=== PATIENT | male | born 1950 | race Caucasian/White ===

== ENCOUNTER → 2016-10-31 | Outpatient (CLI) | payer MEDICARE, BC ==
[~2016-10-31] MED LIST: ASPIRIN 81M81 MG/TA2 PO; BENAZEPRIL; BUFFERED ASPIRIN; FISH OIL1 IU PO; FLEXERIL 1010 MG/TAB PO; GLUCOSAMINE SU500 M2 PO; HCTZ; HCTZ12.5TAB PO; HYTRIN 2MG CAPSU2 MG PO; LOTENSIN40 MG PO; LOTREL 10 MG-201 CAP PO; MULTIPLE VITAMI1 TA1 PO; MVI; NEURONTIN300 MG/CAP PO; NORCO 325 MG-51 TAB PO; NORVASC 10MG10 MG PO; OMEGA 31000 MG; PRADAXA 150MG150 MG PO; RYTHMOL; RYTHMOL300 MG PO
== END ==
LOC: COL.VAS 08:21
DX: I82.531 Chronic embolism and thrombosis of right popliteal vein (principal); M79.661 Pain in right lower leg; D68.2 Hereditary deficiency of other clotting factors; R60.0 Localized edema

== ENCOUNTER 2018-01-20 09:01 | Emergency (ER) | payer MEDICARE, BC ==
[~2018-01-20] VITALS: Ht 193 cm; Wt 124.4 kg
[2018-01-20 09:24] VITALS: BP 129/73
[2018-01-20] MEDS ORDERED: PERCOCET 325 MG1 TA3 PO (13:16)
[2018-01-20 13:46] VITALS: PULSE 112; TEMP 98.3
== END 2018-01-20 13:43 | disposition home or self-care (01) ==
LOC: COL.ER 09:01
DX: M54.12 Radiculopathy, cervical region (principal); I48.91 Unspecified atrial fibrillation; I12.9 Hypertensive chronic kidney disease with stage 1 through stage 4 chronic kidney disease, or unspecified chronic kidney disease; N18.9 Chronic kidney disease, unspecified; I82.409 Acute embolism and thrombosis of unspecified deep veins of unspecified lower extremity; Z87.891 Personal history of nicotine dependence; Z79.82 Long term (current) use of aspirin
CPT/HCPCS: J2270; J2550

== ENCOUNTER → 2018-04-16 | Outpatient (CLI) | payer MEDICARE, BC ==
[~2018-04-16] MED LIST changes: +PERCOCET 325 MG1 TA3 PO
== END ==
LOC: COL.RAD 09:15
DX: N40.0 Benign prostatic hyperplasia without lower urinary tract symptoms (principal); N28.1 Cyst of kidney, acquired

== ENCOUNTER → 2019-08-28 | Outpatient (CLI) | payer MEDICARE, BC | LOC: COL.VAS 08:00 | DX: N18.4 Chronic kidney disease, stage 4 (severe) (principal) | CPT/HCPCS: G0365 ==

== ENCOUNTER 2020-07-30 11:12 | Emergency (ER) | payer MEDICARE, BC ==
[~2020-07-30] VITALS: Ht 193 cm; Wt 102.7 kg
[2020-07-30 11:15] VITALS: TEMP 97.8
[2020-07-30] MEDS ORDERED: ELIQUIS 5MG PO ×2 (11:38→11:45)
[2020-07-30] MEDS ORDERED: LASIX 20MG TABL20 MG PO (11:40)
[2020-07-30] MEDS ORDERED: HYTRIN 5MG C5 MG/CAP PO (11:43)
[2020-07-30 11:50] LABS: BASO % 0.7 % (0.0-2.0); EOS # 0.1 (0.0-0.7); EOS % 3.2 % (0-4.0); GRAN # 2.9 (1.4-6.5); GRAN % 65.9 % (42.2-75.2); LYMPH % 22.4 % (20.0-51.0); MEAN CELL VOLUME 91 fl (80.0-100.0); MEAN CORPUSCULAR HGB CONC 33 g/dl (33.0-37.0); MEAN PLATELET VOLUME 10.7 fl (7.4-10.4); MONO # 0.3 (0.1-0.6); MONO % 7.3 % (1.7-9.3); PLATELET COUNT 169 K/mm3 (130-400); RED BLOOD COUNT 3.06 M/mm3 (4.20-5.60); REDCELL DISTRIBUTION WIDTH-CV 13.2 % (11.5-14.5)
[2020-07-30 11:51] LABS: HEMATOCRIT 27.8 % (42.0-52.0); HEMOGLOBIN 9.1 g/dl (13.5-18.0); MEAN CORPUSCULAR HEMOGLOBIN 30 pg (27.0-31.0)
[2020-07-30 11:56] LABS: INR 1.3 (0.8-3.0); PROTHROMBIN TIME 14.7 SECONDS (9.7-12.8)
[2020-07-30 11:59] LABS: PARTIAL THROMBOPLASTIN TIME 32.1 SECONDS (26.0-37.0)
[2020-07-30 12:03] LABS: ALBUMIN 4.3 gm/dL (3.5-5.0); BILIRUBIN,TOTAL 0.4 mg/dL (0.0-1.0); CALCIUM 9.1 mg/dL (8.4-10.2); CREATININE, serum 6.22 (0.66-1.25); POTASSIUM 4.7 mmol/L (3.4-5.0); TOTAL PROTEIN 7.1 gm/dL (6.4-8.2)
[2020-07-30 12:14] LABS: TROPONIN-I 0.014 ng/mL (0.000-0.035)
[2020-07-30 13:45] VITALS: BP 159/91; PULSE 75
== END 2020-07-30 14:00 | disposition home or self-care (01) ==
LOC: COL.ER 11:12
PROVIDERS: Family Medicine
DX: R07.9 Chest pain, unspecified (principal); I12.0 Hypertensive chronic kidney disease with stage 5 chronic kidney disease or end stage renal disease; N18.6 End stage renal disease; Z79.82 Long term (current) use of aspirin; Z79.01 Long term (current) use of anticoagulants

== ENCOUNTER 2021-08-02 10:06 | Inpatient (IN) | payer MEDICARE, BC ==
[~2021-08-02] VITALS: Ht 193 cm; Wt 97.3 kg
[~2021-08-02 10:06] MED LIST changes: +ELIQUIS 5MG PO; +HYTRIN 5MG C5 MG/CAP PO; +LASIX 20MG TABL20 MG PO
[2021-08-02 10:40] VITALS: BP 139/65; PULSE 59; TEMP 97.6
[2021-08-02 12:08] LABS: ALBUMIN 3.3 gm/dL (3.4-4.8); CALCIUM 9.4 mg/dL (8.4-10.2); CREATININE, serum 10.59 mg/dL (0.72-1.25); PHOSPHOROUS 4.9 mg/dL (2.3-4.7); POTASSIUM 4.7 mmol/L (3.5-4.5)
[2021-08-02 12:11] LABS: ALBUMIN 3.3 gm/dL (3.4-4.8); BASO % 0.4 % (0.0-2.0); BILIRUBIN,TOTAL 0.4 mg/dL (0.2-1.2); CALCIUM 9.4 mg/dL (8.4-10.2); CREATININE, serum 10.47 mg/dL (0.72-1.25); EOS # 0.1 K/mm3 (0.0-0.7); EOS % 2.4 % (0-4.0); GRAN % 64.6 % (42.2-75.2); LYMPH # 0.9 K/mm3 (1.2-3.4); LYMPH % 20.6 % (20.0-51.0); MEAN CELL VOLUME 90 fl (80.0-100.0); MEAN CORPUSCULAR HGB CONC 33 g/dl (33.0-37.0); MEAN PLATELET VOLUME 10.8 fl (7.4-10.4); MONO # 0.5 K/mm3 (0.1-0.6); MONO % 11.8 % (1.7-9.3); PLATELET COUNT 160 K/mm3 (130-400); POTASSIUM 4.6 mmol/L (3.5-4.5); RED BLOOD COUNT 3.24 M/mm3 (4.20-5.60); REDCELL DISTRIBUTION WIDTH-CV 15.3 % (11.5-14.5); TOTAL PROTEIN 6.1 gm/dL (6.2-8.1)
[2021-08-02 12:13] LABS: HEMOGLOBIN 9.5 g/dl (13.5-18.0); MEAN CORPUSCULAR HEMOGLOBIN 29 pg (27.0-31.0)
[2021-08-02] MEDS ORDERED: CALCITRIOL PO (12:23)
[2021-08-02] MEDS ORDERED: PHOS LO (12:24)
[2021-08-02] MEDS ORDERED: CHONDROITIN PO (12:25)
[2021-08-02] MEDS ORDERED: GLU PO (12:25)
[2021-08-02] MEDS ORDERED: B-121000 MCG PO (12:26)
[2021-08-02] MEDS ORDERED: ARANESP0.06 MG/ML SQ (12:27)
[2021-08-02] MEDS ORDERED: DULCOLAX STOOL100 MG PO (12:30)
[2021-08-02] MEDS ORDERED: APRESOLINE 25MG25 MG PO (12:32)
[2021-08-02] MEDS ORDERED: KRILL OIL 1,001 EAC1 PO (12:32)
[2021-08-02] MEDS ORDERED: RYTHMOL225 MG PO (12:33)
[2021-08-02] MEDS ORDERED: SODIUM BICARBO650 MG PO (12:33)
[2021-08-02] MEDS ORDERED: NATURE'S BLEND100 M2 PO (12:34)
[2021-08-02] MEDS ORDERED: VITAMIN B COMPL1 SGL PO (12:56)
[2021-08-02 16:35] VITALS: BP 147/82; PULSE 60; TEMP 98.4
--- NOTE | 2021-08-02 17:14 | NUR ---
Pt. admitted to room 359 today around 10:40. Pt went to go to dialysis this am, however pt. 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 Medication list updated in [facility] and J[facility] Jose made aware. Pt.'s supportive at bedside. Pt. OOB ambulating w/ standby assist for safety. Pt. had PO intake of Nepro drink. Pt. also had grapes. Pt. denies pain. Site to left arm swollen, ice pack has been applied off and on throughout the shift. Pt. makes needs known. Melisa has been on hold, plan for dialysis cath placement tomorrow around 1152-0154. Lovenox administered per Dr. Denton order. The pt. has been updated on plan of care and agreeable. Call light and belongings in reach.
[2021-08-02 20:00] VITALS: BP 164/78; PULSE 55; TEMP 98.1
--- NOTE | 2021-08-02 20:30 | NUR ---
Patient refused to get an IV indicating he does not need it and will go out tomorrow from the hospital.
[2021-08-02 23:14] LABS: HEPATITIS B SURFACE ANTIBODY 22.9 (()); HEPATITIS B SURFACE ANTIGEN Negative (Negative); HEPATITIS C VIRUS ANTIBODY Negative (Negative)
[2021-08-03] VITALS (8 sets, daily range): BP systolic 120–157; BP diastolic 69–88; PULSE 55–73; TEMP 97.5–98.8
--- NOTE | 2021-08-03 06:51 | NUR ---
Patient has been stable along the night. He has been NPO after midnight for procedure. No further needs at this time. Shift report will be given to day nurse.
[2021-08-03 07:52] LABS: BASO % 0.9 % (0.0-2.0); EOS # 0.2 K/mm3 (0.0-0.7); EOS % 5.2 % (0-4.0); GRAN # 2.5 K/mm3 (1.4-6.5); GRAN % 54.5 % (42.2-75.2); LYMPH # 1.2 K/mm3 (1.2-3.4); LYMPH % 25.7 % (20.0-51.0); MEAN CORPUSCULAR HGB CONC 31 g/dl (33.0-37.0); MEAN PLATELET VOLUME 11.1 fl (7.4-10.4); MONO # 0.6 K/mm3 (0.1-0.6); MONO % 13.5 % (1.7-9.3); PLATELET COUNT 152 K/mm3 (130-400); RED BLOOD COUNT 3.12 M/mm3 (4.20-5.60); REDCELL DISTRIBUTION WIDTH-CV 15.7 % (11.5-14.5)
[2021-08-03 08:02] LABS: HEMATOCRIT 29.5 % (42.0-52.0); HEMOGLOBIN 9.2 g/dl (13.5-18.0); MEAN CELL VOLUME 95 fl (80.0-100.0); MEAN CORPUSCULAR HEMOGLOBIN 29 pg (27.0-31.0)
[2021-08-03 08:14] LABS: ALBUMIN 3.1 gm/dL (3.4-4.8); CALCIUM 9.9 mg/dL (8.4-10.2); CREATININE, serum 10.75 mg/dL (0.72-1.25); PHOSPHOROUS 6.1 mg/dL (2.3-4.7); POTASSIUM 4.6 mmol/L (3.5-4.5)
--- NOTE | 2021-08-03 09:30 | NUR ---
Initial visit; Patient and his thanked Remote Recruiter for looking in on him and offering God's blessings. Remote Recruiter will follow up.
--- NOTE | 2021-08-03 13:48 | NUR ---
workers compensation analyst met with patient to discuss discharge plan. Patient currently lives at home with his Hansel ([phone]) in [place]. present at bedside. Patient reports to being fully independent with ADL's and does not utilize any DME at home. PCP is Dr. Bush and utilizes [facility] and [facility] for perscriptions. Patient states that he does have a DPOA-HC established and that his agent is his . Patient is planning on returning home post dc. Discharge plan: Home with spouse
--- NOTE | 2021-08-03 20:30 | NUR ---
Patient is resting in bed watching TV, alert and oriented x 4, VSS, denies pain, nausea or vomiting. Left forearm wih some imflamation, indicates not discomfort. Assessment completed, meds provided. No further needs at this time. Call light within reach.
--- NOTE | 2021-08-03 23:26 | NUR ---
Patient reports some discomfort in the site ot the temporary cath. Asked for tylenol, provided.
[2021-08-04 03:16] VITALS: BP 153/69; PULSE 59; TEMP 98.3
--- NOTE | 2021-08-04 06:14 | NUR ---
Patient has had a calm night. All needs met. Shift report will be given to day nurse.
[2021-08-04 07:49] VITALS: BP 145/81; PULSE 60; TEMP 97.8
[2021-08-04 11:03] LABS: BASO % 0.8 % (0.0-2.0); EOS # 0.1 K/mm3 (0.0-0.7); EOS % 2.7 % (0-4.0); GRAN # 2.5 K/mm3 (1.4-6.5); GRAN % 68.5 % (42.2-75.2); LYMPH # 0.6 K/mm3 (1.2-3.4); LYMPH % 15.2 % (20.0-51.0); MEAN CORPUSCULAR HGB CONC 32 g/dl (33.0-37.0); MEAN PLATELET VOLUME 10.9 fl (7.4-10.4); MONO # 0.5 K/mm3 (0.1-0.6); MONO % 12.5 % (1.7-9.3); PLATELET COUNT 123 K/mm3 (130-400); RED BLOOD COUNT 3.19 M/mm3 (4.20-5.60); REDCELL DISTRIBUTION WIDTH-CV 15.4 % (11.5-14.5)
[2021-08-04 11:06] LABS: HEMATOCRIT 28.2 % (42.0-52.0); HEMOGLOBIN 9.1 g/dl (13.5-18.0); MEAN CELL VOLUME 88 fl (80.0-100.0); MEAN CORPUSCULAR HEMOGLOBIN 29 pg (27.0-31.0)
[2021-08-04 11:20] VITALS: BP 157/74; PULSE 57; TEMP 97.8
--- NOTE | 2021-08-04 11:20 | NUR ---
PATIENT TOLERATED HIS 1ST HD TX WITH NO FLUID REMOVAL. NEXT PLANNED HD TX TOMORROW, Saturday08/05/21 IN AFTERNOON.
--- NOTE | 2021-08-04 11:40 | NUR ---
Fellmongering Machine Operator collaborated with MIKE Mclean who advised she would be recommending home for patient.
[2021-08-04 15:46] VITALS: BP 158/76; PULSE 60; TEMP 98.1
[2021-08-04 20:18] VITALS: BP 150/74; PULSE 55; TEMP 97.9
--- NOTE | 2021-08-05 00:10 | NUR ---
ALERT AND OX4. DENIES SOA, CHEST PAIN OR DIZZY. RT PORT A CATH FOR DIALYSIS ACCESS. PM MEDS GIVEN ALONG W SLEEP AIDE. REF SCD. CALL LIGHT WI REACH. NEEDS MET.
[2021-08-05 01:24] VITALS: BP 142/85; PULSE 56; TEMP 98.2
[2021-08-05 05:31] VITALS: BP 137/58; PULSE 60; TEMP 97.8
--- NOTE | 2021-08-05 05:49 | NUR ---
Rested through the night without incident. Dialysis this am then possible DC.
[2021-08-05 07:18] VITALS: BP 140/80; PULSE 53; TEMP 98.3
--- NOTE | 2021-08-05 07:42 | NUR ---
Pt assessment complete. Pt is laying in bed upon entry, he is A/O x4. His breathing is even and unlabored on RA. Pt reports SOB is no different than normal. Pt has some pain to R chest catheter with certain movements. Refuses need for intervention. Dressing does have some blood, pt to have dialysis today so will wait until then for dressing change. Pt denies any further needs at this time. Call light within reach.
[2021-08-05 12:24] LABS: BASO % 0.7 % (0.0-2.0); EOS # 0.1 K/mm3 (0.0-0.7); EOS % 3.1 % (0-4.0); LYMPH # 0.8 K/mm3 (1.2-3.4); LYMPH % 17.3 % (20.0-51.0); MEAN CELL VOLUME 89 fl (80.0-100.0); MEAN CORPUSCULAR HGB CONC 33 g/dl (33.0-37.0); MEAN PLATELET VOLUME 11.2 fl (7.4-10.4); MONO # 0.6 K/mm3 (0.1-0.6); MONO % 12.7 % (1.7-9.3); PLATELET COUNT 123 K/mm3 (130-400); RED BLOOD COUNT 3.19 M/mm3 (4.20-5.60); REDCELL DISTRIBUTION WIDTH-CV 15.3 % (11.5-14.5)
[2021-08-05 12:26] LABS: HEMATOCRIT 28.4 % (42.0-52.0); HEMOGLOBIN 9.4 g/dl (13.5-18.0); MEAN CORPUSCULAR HEMOGLOBIN 29 pg (27.0-31.0)
[2021-08-05 12:44] LABS: ALBUMIN 3.1 gm/dL (3.4-4.8); CALCIUM 9.7 mg/dL (8.4-10.2); CREATININE, serum 8.26 mg/dL (0.72-1.25); PHOSPHOROUS 4.4 mg/dL (2.3-4.7); POTASSIUM 4.7 mmol/L (3.5-4.5)
[2021-08-05 14:51] VITALS: BP 146/84; PULSE 58; TEMP 98.5
--- NOTE | 2021-08-05 14:52 | NUR ---
PATIENT TOLERATED HIS 2ND HD TX. NEXT PLANNED HD TX @ [facility] ON Saturday08/08/21 @ 0600.
--- NOTE | 2021-08-05 16:00 | NUR ---
Discharge paperwork and instructions reviewed with patient and his . All questions answered. IV to RWrist dc'd catheter tip intact. Pt wheeled out of facility at this time.
== END 2021-08-05 16:01 | disposition home or self-care (01) | DRG 673 ==
LOC: MEDICAL 10:06
PROVIDERS: ADMIT Internal Medicine Nephrology
PROC: 0JH63XZ Insertion of Tunneled Vascular Access Device into Chest Subcutaneous Tissue and Fascia, Percutaneous Approach (ICD-10-PCS; principal; 2021-08-02)
PROC: 05HM33Z Insertion of Infusion Device into Right Internal Jugular Vein, Percutaneous Approach (ICD-10-PCS; 2021-08-02)
PROC: 5A1D70Z Performance of Urinary Filtration, Intermittent, Less than 6 Hours Per Day (ICD-10-PCS; 2021-08-02)
DX: I12.0 Hypertensive chronic kidney disease with stage 5 chronic kidney disease or end stage renal disease (principal); N18.6 End stage renal disease; D68.51 Activated protein C resistance; D63.1 Anemia in chronic kidney disease; N40.0 Benign prostatic hyperplasia without lower urinary tract symptoms; E66.9 Obesity, unspecified; M19.90 Unspecified osteoarthritis, unspecified site; E83.39 Other disorders of phosphorus metabolism; Z87.891 Personal history of nicotine dependence; Z86.711 Personal history of pulmonary embolism; Z79.02 Long term (current) use of antithrombotics/antiplatelets; Z98.52 Vasectomy status; Z86.718 Personal history of other venous thrombosis and embolism; Z95.818 Presence of other cardiac implants and grafts
CPT/HCPCS: C1769; J1644; J1650; J2250; J3010; J7030

== ENCOUNTER 2021-11-22 06:25 | Outpatient (CLI) | payer MEDICARE, BC ==
[~2021-11-22] VITALS: Ht 193 cm; Wt 100.1 kg
[2021-11-22] VITALS (10 sets, daily range): BP systolic 149–169; BP diastolic 79–108; PULSE 55–72
[~2021-11-22 06:25] MED LIST changes: +APRESOLINE 25MG25 MG PO; +ARANESP0.06 MG/ML SQ; +B-121000 MCG PO; +CALCITRIOL PO; +CHONDROITIN PO; +DULCOLAX STOOL100 MG PO; +GLU PO; +KRILL OIL 1,001 EAC1 PO; +NATURE'S BLEND100 M2 PO; +PHOS LO; +RYTHMOL225 MG PO; +SODIUM BICARBO650 MG PO
--- NOTE | 2021-11-22 08:13 | NUR ---
SEE MERGE FOR ALL MEDICATION ADMINISTRATION TIMES/DOSAGES AND INTRA/POST PROCEDURE SEDATION ASSESSMENTS. PRE PROCEDURE ASSESSMENT COMPLETED IN [facility].
[2021-11-22] MEDS ORDERED: OSTEO-BI-FLEX 21 TAB PO (08:37)
[2021-11-22] MEDS ORDERED: FOLIC ACID 11 MG/TA1 PO (08:39)
[2021-11-22] MEDS ORDERED: MIRALAX PA17 GM/Dose PO (08:39)
[2021-11-22] MEDS ORDERED: PHOSLO667 MG PO (08:41)
--- NOTE | 2021-11-22 12:30 | NUR ---
Discharge instructions given to pt.Pt verbalizes understanding.INT removed,catheter tip intact.Pt escorted out via wheelchair by this nurse.
== END 2021-11-22 14:47 ==
LOC: COL.CAR 06:25
DX: T82.868A Thrombosis due to vascular prosthetic devices, implants and grafts, initial encounter (principal); I12.0 Hypertensive chronic kidney disease with stage 5 chronic kidney disease or end stage renal disease; N18.6 End stage renal disease; Z99.2 Dependence on renal dialysis; Z90.89 Acquired absence of other organs; Z79.899 Other long term (current) drug therapy; Z87.891 Personal history of nicotine dependence
CPT/HCPCS: C1769; C1887; C1894; J0360; J1644; J2250; J3010; Q9967

== ENCOUNTER 2022-06-05 12:54 | Emergency (ER) | payer MEDICARE, BC ==
[~2022-06-05] VITALS: Ht 195.6 cm; Wt 97.7 kg
[~2022-06-05 12:54] MED LIST changes: +FOLIC ACID 11 MG/TA1 PO; +MIRALAX PA17 GM/Dose PO; +OSTEO-BI-FLEX 21 TAB PO; +PHOSLO667 MG PO
[2022-06-05 13:55] LABS: BASO % 0.7 % (0.0-2.0); EOS # 0.1 K/mm3 (0.0-0.7); EOS % 1.5 % (0.0-4.0); GRAN # 3.2 K/mm3 (1.4-6.5); GRAN % 78.1 % (42.2-75.2); LYMPH # 0.2 K/mm3 (1.2-3.4); LYMPH % 5.6 % (20.0-51.0); MEAN CELL VOLUME 100 fl (80.0-100.0); MEAN CORPUSCULAR HGB CONC 32 g/dl (33.0-37.0); MEAN PLATELET VOLUME 10.9 fl (7.4-10.4); MONO # 0.6 K/mm3 (0.1-0.6); MONO % 13.9 % (1.7-9.3); PLATELET COUNT 111 K/mm3 (130-400); RED BLOOD COUNT 3.01 M/mm3 (4.20-5.60); REDCELL DISTRIBUTION WIDTH-CV 13.1 % (11.5-14.5)
[2022-06-05 13:57] LABS: HEMOGLOBIN 9.6 g/dl (13.5-18.0); MEAN CORPUSCULAR HEMOGLOBIN 32 pg (27-31)
[2022-06-05 14:14] LABS: ALBUMIN 3.2 gm/dL (3.4-4.8); BILIRUBIN,TOTAL 0.7 mg/dL (0.2-1.2); CALCIUM 9.2 mg/dL (8.4-10.2); CREATININE, serum 5.28 mg/dL (0.72-1.25); POTASSIUM 4.8 mmol/L (3.5-4.5); TOTAL PROTEIN 6.1 gm/dL (6.2-8.1)
[2022-06-05 15:56] VITALS: BP 144/86; PULSE 67; TEMP 99.3
== END 2022-06-05 16:20 | disposition home or self-care (01) ==
LOC: COL.ER 12:54
PROVIDERS: Family Medicine
DX: U07.1 COVID-19 (principal); Z73.0 Burn-out; Z87.891 Personal history of nicotine dependence
CPT/HCPCS: Q0222

== ENCOUNTER 2023-03-26 12:59 | Emergency (ER) | payer MEDICARE, BC ==
[~2023-03-26] VITALS: Ht 193 cm; Wt 95.5 kg
[~2023-03-26 12:59] MED LIST changes: +PEPCID 20MG TAB20 MG PO
[2023-03-26 13:19] VITALS: TEMP 98.5
[2023-03-26 13:51] LABS: BASO % 0.7 % (0.0-2.0); EOS # 0.1 K/mm3 (0.0-0.7); EOS % 1.7 % (0.0-4.0); GRAN # 4.3 K/mm3 (1.4-6.5); GRAN % 79.6 % (42.2-75.2); HEMATOCRIT 27.8 % (42.0-52.0); LYMPH # 0.6 K/mm3 (1.2-3.4); LYMPH % 10.6 % (20.0-51.0); MEAN CELL VOLUME 100 fl (80.0-100.0); MEAN CORPUSCULAR HEMOGLOBIN 32 pg (27-31); MEAN CORPUSCULAR HGB CONC 32 g/dl (33.0-37.0); MEAN PLATELET VOLUME 10.2 fl (7.4-10.4); MONO # 0.4 K/mm3 (0.1-0.6); MONO % 7.2 % (1.7-9.3); PLATELET COUNT 163 K/mm3 (130-400); RED BLOOD COUNT 2.78 M/mm3 (4.20-5.60); REDCELL DISTRIBUTION WIDTH-CV 14.6 % (11.5-14.5)
[2023-03-26 14:08] LABS: ALBUMIN 3.1 gm/dL (3.4-4.8); BILIRUBIN,TOTAL 0.5 mg/dL (0.2-1.2); CALCIUM 9.1 mg/dL (8.4-10.2); CREATININE, serum 5.23 mg/dL (0.72-1.25); POTASSIUM 3.7 mmol/L (3.5-4.5); TOTAL PROTEIN 5.7 gm/dL (6.2-8.1)
[2023-03-26 14:26] VITALS: BP 124/91; PULSE 80
== END 2023-03-26 14:26 | disposition home or self-care (01) ==
LOC: COL.ER 12:59
PROVIDERS: Emergency Medicine
DX: K92.2 Gastrointestinal hemorrhage, unspecified (principal); I12.0 Hypertensive chronic kidney disease with stage 5 chronic kidney disease or end stage renal disease; N18.6 End stage renal disease; E66.9 Obesity, unspecified; Z68.25 Body mass index [BMI] 25.0-25.9, adult; Z86.718 Personal history of other venous thrombosis and embolism; Z99.2 Dependence on renal dialysis; Z79.01 Long term (current) use of anticoagulants

== ENCOUNTER 2023-09-25 09:15 | Day surgery (SDC) | payer MEDICARE, BC ==
[2023-09-25] VITALS (9 sets, daily range): BP systolic 115–135; BP diastolic 63–77; PULSE 61–84; TEMP 97.9
[~2023-09-25] VITALS: Ht 193.1 cm; Wt 95.3 kg
[~2023-09-25 09:15] MED LIST changes: +AMOXICILLIN/CLA1 TA1 PO; +BENADRYL25 M2 PO; +DOXYCYCLINE 10100 MG PO; +ELIQUIS 2.5 PO; +ENTOCORT EC3 MG PO; +GLUCOSAMINE & C1 TAB PO; +LIALDA 1.2 GM1.2 GM PO; +MELATONIN1 MG PO; +PREDNISONE50 MG PO; +PROAIR HFA0.09 MG/AC IH; +VITAMIN B12 1541 TAB PO; +ZITHROMAX Z PA250 MG PO
[2023-09-25] MEDS ORDERED: NORVASC 10MG10 MG PO (10:01)
[2023-09-25] MEDS ORDERED: HYTRIN 2MG CAPSU2 MG PO (10:02)
[2023-09-25] MEDS ORDERED: HYTRIN 5MG C5 MG/CAP PO (10:03)
[2023-09-25] MEDS ORDERED: CORDARONE200 MG/TAB PO (10:04)
[2023-09-25] MEDS ORDERED: ALBUTEROL0.83 MG/ML IH (10:06)
[2023-09-25] MEDS ORDERED: OSTEO-BI-FLEX 21 TAB PO (10:10)
[2023-09-25] MEDS ORDERED: B-121000 MCG PO (10:11)
[2023-09-25] MEDS ORDERED: MIRALAX PA17 GM/Dose PO (10:12)
[2023-09-25 10:15] LABS: BASO % 0.5 % (0.0-2.0); EOS # 0.1 K/mm3 (0.0-0.7); EOS % 3.2 % (0.0-4.0); GRAN # 2.8 K/mm3 (1.4-6.5); GRAN % 68.7 % (42.2-75.2); HEMOGLOBIN 10.5 g/dl (13.5-18.0); LYMPH # 0.7 K/mm3 (1.2-3.4); LYMPH % 16.7 % (20.0-51.0); MEAN CELL VOLUME 95 fl (80.0-100.0); MEAN CORPUSCULAR HEMOGLOBIN 31 pg (27-31); MEAN CORPUSCULAR HGB CONC 33 g/dl (33.0-37.0); MEAN PLATELET VOLUME 10.7 fl (7.4-10.4); MONO # 0.4 K/mm3 (0.1-0.6); MONO % 10.4 % (1.7-9.3); PLATELET COUNT 161 K/mm3 (130-400); RED BLOOD COUNT 3.39 M/mm3 (4.20-5.60); REDCELL DISTRIBUTION WIDTH-CV 14.4 % (11.5-14.5)
[2023-09-25 10:19] LABS: HEMATOCRIT 32.2 % (42.0-52.0)
[2023-09-25] MEDS ORDERED: TYLENOL 500MG500 MG PO (10:19)
[2023-09-25] MEDS ORDERED: PREDNISONE10 MG PO (10:20)
[2023-09-25 10:25] LABS: INR 1.2 (0.8-3.0); PROTHROMBIN TIME 13.6 SECONDS (9.7-12.8)
[2023-09-25 10:28] LABS: PARTIAL THROMBOPLASTIN TIME 23.9 SECONDS (26.0-37.0)
[2023-09-25 10:45] LABS: CALCIUM 9.6 mg/dL (8.4-10.2); CREATININE, serum 7.22 mg/dL (0.72-1.25); MAGNESIUM 2.3 mg/dL (1.6-2.6); POTASSIUM 4.3 mmol/L (3.5-4.5)
[2023-09-25 11:05] LABS: THYROID STIMULATING HORMONE 4.752 uIU/mL (0.350-4.940)
--- NOTE | 2023-09-25 12:25 | NUR ---
Report frederick Gonzalez Rn.Pt awake and alert.
== END 2023-09-25 16:38 ==
LOC: COL.CAR 09:15
PROVIDERS: Internal Medicine Cardiovascular Disease
DX: I48.19 Other persistent atrial fibrillation (principal); D68.2 Hereditary deficiency of other clotting factors; I12.9 Hypertensive chronic kidney disease with stage 1 through stage 4 chronic kidney disease, or unspecified chronic kidney disease; N18.9 Chronic kidney disease, unspecified; I08.0 Rheumatic disorders of both mitral and aortic valves; Z99.2 Dependence on renal dialysis; Z79.01 Long term (current) use of anticoagulants; Z79.899 Other long term (current) drug therapy; Z87.891 Personal history of nicotine dependence; Z95.9 Presence of cardiac and vascular implant and graft, unspecified; Z95.828 Presence of other vascular implants and grafts
CPT/HCPCS: J0282; J2704; J7060

== ENCOUNTER → 2023-11-23 | Emergency (ER) | payer MEDICARE, BC ==
[~2023-11-23] VITALS: Ht 195.6 cm; Wt 95.5 kg
[~2023-11-23] MED LIST changes: +ALBUTEROL0.83 MG/ML IH; +BREZTRI AEROS10.7 GM IH; +CORDARONE200 MG/TAB PO; +PREDNISONE10 MG PO; +TYLENOL 500MG500 MG PO
[2023-11-23 08:00] LABS: BASO % 0.9 % (0.0-2.0); EOS # 0.3 K/mm3 (0.0-0.7); EOS % 8.1 % (0.0-4.0); GRAN # 2.3 K/mm3 (1.4-6.5); GRAN % 67.9 % (42.2-75.2); LYMPH # 0.5 K/mm3 (1.2-3.4); LYMPH % 13.5 % (20.0-51.0); MEAN CELL VOLUME 101 fl (80.0-100.0); MEAN CORPUSCULAR HGB CONC 33 g/dl (33.0-37.0); MONO # 0.3 K/mm3 (0.1-0.6); MONO % 9.6 % (1.7-9.3); PLATELET COUNT 114 K/mm3 (130-400); RED BLOOD COUNT 2.86 M/mm3 (4.20-5.60); REDCELL DISTRIBUTION WIDTH-CV 14.7 % (11.5-14.5)
[2023-11-23 08:08] LABS: HEMATOCRIT 28.9 % (42.0-52.0); HEMOGLOBIN 9.5 g/dl (13.5-18.0); MEAN CORPUSCULAR HEMOGLOBIN 33 pg (27-31)
[2023-11-23 08:17] LABS: ALBUMIN 3.5 gm/dL (3.4-4.8); BILIRUBIN,TOTAL 0.6 mg/dL (0.2-1.2); CALCIUM 9.6 mg/dL (8.4-10.2); CREATININE, serum 12.18 mg/dL (0.72-1.25); POTASSIUM 5.1 mmol/L (3.5-4.5)
[2023-11-23 08:43] VITALS: BP 132/82; PULSE 102; TEMP 97.2
== END ==
LOC: COL.ER 06:56
PROVIDERS: Personal Emergency Response Attendant
DX: S09.90XA Unspecified injury of head, initial encounter (principal); S61.411A Laceration without foreign body of right hand, initial encounter; S50.01XA Contusion of right elbow, initial encounter; D61.818 Other pancytopenia; I12.0 Hypertensive chronic kidney disease with stage 5 chronic kidney disease or end stage renal disease; N18.6 End stage renal disease; Z99.2 Dependence on renal dialysis; W00.0XXA Fall on same level due to ice and snow, initial encounter; Z79.01 Long term (current) use of anticoagulants; W22.8XXA Striking against or struck by other objects, initial encounter; Y92.009 Unspecified place in unspecified non-institutional (private) residence as the place of occurrence of the external cause

== ENCOUNTER 2024-01-16 12:10 | Day surgery (SDC) | payer MEDICARE, BC ==
[~2024-01-16] VITALS: Ht 193 cm; Wt 96.4 kg
[~2024-01-16 12:10] MED LIST changes: +AMBIEN 10MG10 MG PO; +LR 1,000 ML IV SCH; +Ondansetron 4 MG/2 ML VIAL IV PRN
[2024-01-16] MEDS ORDERED: Glycopyrrolate 0.2 MG/ML 1 ML VIAL ONE (12:59)
[2024-01-16] MEDS ORDERED: Lidocaine PF 2% (20 MG/ML) 5 ML VIAL ONE (12:59)
[2024-01-16] MEDS ORDERED: NS 1,000 ML IV SCH (13:00)
[2024-01-16 13:28] LABS: CALCIUM 9.6 mg/dL (8.4-10.2); CREATININE, serum 9.22 mg/dL (0.72-1.25); POTASSIUM 4.4 mmol/L (3.5-4.5)
[2024-01-16] MEDS ORDERED: MELATONIN5 M1 SL (14:03)
[2024-01-16] MEDS ORDERED: TOPROL XL 50MG50 MG PO (14:07)
[2024-01-16 14:22] VITALS: BP 141/81; PULSE 88; TEMP 98.1
[2024-01-16 14:55] VITALS: BP 118/98; PULSE 92; TEMP 98.5
[2024-01-16 15:10] VITALS: BP 128/91; PULSE 86
--- NOTE | 2024-01-16 15:25 | NUR ---
1455-PT TO BAY 3 PER CART FROM PROCEDURE ROOM. PT AMBULATED TO CHAIR WITH 2 PERSON STAND BY ASSIST. REPORT RECEIVED. VS OBTAINED. CALL LIGHT WITHIN REACH. 1457-DR CROCKETT IN ROOM DISCUSSING FINDINGS WITH PT AND HIS . 1500-PT TOLERATING WATER AND JUICE. 1510-IV DC'D AT THIS TIME. 1515-DISCHARGE EDUCATION COMPLETED WITH PT AND HIS . VERBALIZED UNDERSTANDING OF HOME AND FOLLOW UP CARE. ALL QUESTIONS ANSWERED. DISCHARGE PAPERWORK GIVEN TO PT'S . PT ABLE TO DRESS WITH ASSISTANCE OF HIS . 1525-PT OFF UNIT PER WHEELCHAIR. PT DISCHARGED TO HOME WITH HIS PER PERSONAL VEHICLE.
[2024-01-17] MEDS ORDERED: FLOMAX 0.40.4 MG/CAP PO (04:43)
[2024-01-17] MEDS ORDERED: LEVAQUIN 5500 MG/TA1 PO (04:43)
== END 2024-01-16 15:25 | disposition home or self-care (01) ==
LOC: SDCO 12:10
PROVIDERS: Nurse Anesthetist, Certified Registered
DX: K64.0 First degree hemorrhoids (principal); K57.31 Diverticulosis of large intestine without perforation or abscess with bleeding; K55.20 Angiodysplasia of colon without hemorrhage; D50.0 Iron deficiency anemia secondary to blood loss (chronic); Z87.891 Personal history of nicotine dependence
CPT/HCPCS: J2704; J7030

== ENCOUNTER 2024-01-17 03:41 | Emergency (ER) | payer MEDICARE, BC ==
[~2024-01-17] VITALS: Ht 193 cm; Wt 95.5 kg
[~2024-01-17 03:41] MED LIST changes: -LR 1,000 ML IV SCH; +MELATONIN5 M1 SL; -Ondansetron 4 MG/2 ML VIAL IV PRN; +TOPROL XL 50MG50 MG PO
[2024-01-17 03:43] VITALS: TEMP 98.7
[2024-01-17 04:08] LABS: COLLECTION METHOD CLEAN CATCH
[2024-01-17 04:27] LABS: PH 7.5 (5.0-8.5); URINE APPEARANCE TURBID (CLEAR/HAZY); URINE BLOOD 3+ (NEGATIVE); URINE COLOR YELLOW (YELLOW); URINE GLUCOSE NEGATIVE (NEGATIVE); URINE KETONE NEGATIVE (NEGATIVE); URINE NITRATE NEGATIVE (NEGATIVE); URINE PROTEIN(semi-quant) 2+ (NEGATIVE); URINE UROBILINOGEN 0.2 E.U/dL (0.2-1.0)
[2024-01-17] MEDS ORDERED: FLOMAX 0.40.4 MG/CAP PO (04:43)
[2024-01-17] MEDS ORDERED: LEVAQUIN 5500 MG/TA1 PO (04:43)
[2024-01-17] MEDS ORDERED: levoFLOXacin 500 MG TAB PO ONE (04:45)
[2024-01-17 05:04] VITALS: BP 160/89; PULSE 71
== END 2024-01-17 05:04 | disposition home or self-care (01) ==
LOC: COL.ER 03:41
PROVIDERS: Emergency Medicine
DX: N39.0 Urinary tract infection, site not specified (principal)

== ENCOUNTER 2024-02-26 07:07 | Day surgery (SDC) | payer MEDICARE, BC ==
[~2024-02-26] VITALS: Ht 193 cm; Wt 95.5 kg
[~2024-02-26 07:07] MED LIST changes: +FLOMAX 0.40.4 MG/CAP PO; +LEVAQUIN 5500 MG/TA1 PO; +LR 1,000 ML IV SCH; +NS 1,000 ML IV SCH; +[UNRECOGNIZED DRUG - OTHER] PO
[2024-02-26] MEDS ORDERED: Ondansetron 4 MG/2 ML VIAL IV PRN ×2 (08:45→10:00)
[2024-02-26] MEDS ORDERED: hydrALAZINE 20 MG/ML 1 ML VIAL IV PRN (08:45)
[2024-02-26] MEDS ORDERED: Meperidine 50 MG/ML 1 ML VIAL IV PRN (08:45)
[2024-02-26] MEDS ORDERED: fentaNYL 50 MCG/ML 1 ML SYRINGE/VIAL [PACU/SDC ONLY] IV PRN (08:45)
[2024-02-26] MEDS ORDERED: Rocuronium 50 MG/5 ML Multi-Dose VIAL ONE (08:46)
[2024-02-26] MEDS ORDERED: Ondansetron 4 MG/2 ML VIAL ONE (08:46)
[2024-02-26] MEDS ORDERED: Lidocaine PF 2% (20 MG/ML) 5 ML VIAL ONE (08:46)
[2024-02-26] MEDS ORDERED: fentaNYL 50 MCG/ML 5 ML VIAL ONE (08:47)
[2024-02-26 08:53] LABS: CALCIUM 10.1 mg/dL (8.4-10.2); CREATININE, serum 6.29 mg/dL (0.72-1.25); POTASSIUM 4.2 mEq/L (3.5-4.5)
[2024-02-26] MEDS ORDERED: NORCO 325 MG-51 TAB PO (09:57)
[2024-02-26] MEDS ORDERED: Acetaminophen 325 MG TAB PO PRN (10:00)
[2024-02-26 10:11] VITALS: BP 148/91; PULSE 72; TEMP 97.5
[2024-02-26 10:40] VITALS: BP 131/76; PULSE 58; TEMP 97.1
[2024-02-26 10:55] VITALS: BP 117/75; PULSE 69
[2024-02-26 11:05] VITALS: TEMP 97.9
[2024-02-26 11:10] VITALS: BP 121/71; PULSE 57
[2024-02-26 11:40] VITALS: BP 126/77; PULSE 50
--- NOTE | 2024-02-26 12:15 | NUR ---
1040-PT TO BAY 6 PER CART FROM PACU. REPORT RECEIVED. VS OBTAINED. CALL LIGHT WITHIN REACH. PT TOLERATING ICE CHIPS. PT DENIES ANY NEEDS. 1050-PT TOLERATING WATER AND ICE CREAM WITHOUT DIFFICULTY. 1105-PT CONTINUES TO DENY ANY NEEDS. 1115-PT RESTING COMFORTABLY. 1140-PT CONTINUES TO DENY ANY NEEDS. STATES HE IS READY FOR DC. 1200-IV DC'D AT THIS TIME. 1205-DISCHARGE EDUCATION COMPLETED WITH PT AND HIS . THEY VERBALIZED UNDERSTANDING OF HOME AND FOLLOW UP CARE. ALL QUESTIONS ANSWERED. DISCHARGE PAPERWORK GIVEN TO PT'S . PT ABLE TO DRESS SELF WITHOUT ASSISTANCE. 1215-PT OFF UNIT PER WHEELCHAIR. PT DISCHARGED TO HOME WITH HIS PER PERSONAL VEHICLE.
== END 2024-02-26 12:15 | disposition home or self-care (01) ==
LOC: SDCO 07:07
PROVIDERS: Surgery
DX: I13.11 Hypertensive heart and chronic kidney disease without heart failure, with stage 5 chronic kidney disease, or end stage renal disease (principal); N18.6 End stage renal disease; Z85.828 Personal history of other malignant neoplasm of skin
CPT/HCPCS: C1750; J0360; J0690; J2405; J2704; J3010; J7030

== ENCOUNTER 2024-07-06 14:39 | Outpatient (RCR) | payer MEDICARE, BC ==
[~2024-07-06] VITALS: Ht 193 cm; Wt 106.0 kg
[~2024-07-06 14:39] MED LIST changes: -LR 1,000 ML IV SCH; -NS 1,000 ML IV SCH
[2024-07-06 15:44] VITALS: BP 130/80; PULSE 76; TEMP 98.2
[2024-07-06] MEDS ORDERED: NS 250 ML IV SCH (15:45)
[2024-07-06 16:26] VITALS: BP 137/82; PULSE 68; TEMP 98.1
[2024-07-06] MEDS ORDERED: COZAAR 50MG50 MG/TAB PO (16:44)
[2024-07-06 16:51] VITALS: BP 137/93; PULSE 61; TEMP 97.9
[2024-07-06 17:06] VITALS: BP 131/79; PULSE 73; TEMP 98.1
[2024-07-06 17:36] VITALS: BP 145/90; PULSE 66; TEMP 97.9
[2024-07-06 18:00] VITALS: BP 129/86; PULSE 68; TEMP 97.9
== END 2024-07-06 18:19 | disposition home or self-care (01) ==
LOC: EUO 14:39
DX: D64.9 Anemia, unspecified (principal)
CPT/HCPCS: J7050; P9016

== ENCOUNTER 2024-07-31 02:16 | Emergency (ER) | payer MEDICARE, BC ==
[~2024-07-31] VITALS: Ht 195.6 cm; Wt 98.2 kg
[~2024-07-31 02:16] MED LIST changes: +COZAAR 50MG50 MG/TAB PO
[2024-07-31 02:22] VITALS: TEMP 101.1
[2024-07-31] MEDS ORDERED: Acetaminophen 500 MG TAB PO ONE (02:30)
[2024-07-31] MEDS ORDERED: LR 1,000 ML IV ONE (02:30)
[2024-07-31 03:00] LABS: BASO % 0.5 % (0.0-2.0); EOS # 0.2 K/mm3 (0.0-0.7); EOS % 2.9 % (0.0-4.0); GRAN # 6.1 K/mm3 (1.4-6.5); GRAN % 80.6 % (42.2-75.2); LYMPH # 0.5 K/mm3 (1.2-3.4); LYMPH % 6.6 % (20.0-51.0); MEAN CELL VOLUME 107 fl (80.0-100.0); MEAN CORPUSCULAR HGB CONC 33 g/dl (33.0-37.0); MEAN PLATELET VOLUME 10.6 fl (7.4-10.4); MONO # 0.7 K/mm3 (0.1-0.6); PLATELET COUNT 130 K/mm3 (130-400); RED BLOOD COUNT 2.82 M/mm3 (4.20-5.60); REDCELL DISTRIBUTION WIDTH-CV 13.2 % (11.5-14.5)
[2024-07-31 03:02] LABS: HEMATOCRIT 30.1 % (42.0-52.0); HEMOGLOBIN 9.9 g/dl (13.5-18.0); MEAN CORPUSCULAR HEMOGLOBIN 35 pg (27-31)
[2024-07-31 03:18] LABS: ALBUMIN 3.4 g/dL (3.4-4.8); BILIRUBIN,TOTAL 0.6 mg/dL (0.2-1.2); C-REACTIVE PROTEIN 0.56 mg/dL (0.00-0.50); CALCIUM 9.9 mg/dL (8.4-10.2); CREATININE, serum 12.8 mg/dL (0.72-1.25); POTASSIUM 4.2 mEq/L (3.5-4.5); TOTAL PROTEIN 6.5 g/dl (6.2-8.1)
[2024-07-31 03:26] LABS: TROPONIN-I 0.06 ng/mL (0.00-0.033)
[2024-07-31] MEDS ORDERED: AMOXICILLIN/CLA1 TA1 PO (04:30)
[2024-07-31] MEDS ORDERED: DOXYCYCLINE 10100 MG PO (04:30)
[2024-07-31] MEDS ORDERED: Doxycycline Monohydrate 100 MG CAP PO ONE (04:30)
[2024-07-31] MEDS ORDERED: cefTRIAXone 1 G in Water For Injection,Sterile 20 ML IV ONE (04:30)
[2024-07-31 05:00] VITALS: BP 138/75; PULSE 90
[2024-07-31 05:07] LABS: COLLECTION METHOD CLEAN CATCH
[2024-07-31 05:15] LABS: URINE APPEARANCE CLEAR (CLEAR/HAZY); URINE BLOOD TRACE (NEGATIVE); URINE COLOR YELLOW (YELLOW); URINE GLUCOSE NEGATIVE (NEGATIVE); URINE KETONE NEGATIVE (NEGATIVE); URINE NITRATE NEGATIVE (NEGATIVE); URINE PROTEIN(semi-quant) 1+ (NEGATIVE); URINE UROBILINOGEN 0.2 E.U/dL (0.2-1.0)
== END 2024-07-31 05:00 | disposition home or self-care (01) ==
LOC: COL.ER 02:16
PROVIDERS: Emergency Medicine
DX: J18.9 Pneumonia, unspecified organism (principal); Z87.891 Personal history of nicotine dependence; Z88.1 Allergy status to other antibiotic agents
CPT/HCPCS: J0696; J7120